=== PATIENT | female | born 1945 | race Caucasian/White ===

== ENCOUNTER 2018-07-16 19:38 | Inpatient (IN) ==
[2018-07-16 20:34] LABS: Basophils # 0.1 K/mcL (0.0-0.2); Eosinophils # 0.3 K/mcL (0.0-0.6); Eosinophils % 3.3 %; Hematocrit 39.4 % (35.3-44.9); Hemoglobin 13.4 g/dL (11.5-15.4); Immature Granulocytes % 0.9 % (0-4); Lymphocytes # 1.6 K/mcL (0.6-4.6); Lymphocytes % 16.4 %; Mean Corpuscular Hemoglobin 30.9 pg (28.0-33.3); Mean Platelet Volume 10.6 fL (9.4-12.4); Monocytes # 0.8 K/mcL (0.0-1.3); Monocytes % 8.5 %; Neutrophils # 6.7 K/mcL (1.6-8.9); Platelet Count 250 K/mcL (140-400); Red Blood Count 4.33 M/mcL (3.82-4.97); Red Cell Distribution Width 12.4 % (11.5-14.5); Segmented Neutrophils % 69.9 %
[2018-07-16 20:50] LABS: INR 2.6; Prothrombin Time 29.5 Seconds (9.4-12.1)
[2018-07-16 20:52] LABS: BUN/Creatinine Ratio 15 (6-26); Blood Urea Nitrogen 15 mg/dL (8-23); Calcium 9.5 mg/dL (8.6-10.3); Carbon Dioxide 27 mEq/L (23-29); Chloride 104 mEq/L (98-107); Glucose 121 mg/dL (70-105); Osmolality,Calculated 286 (280-300); Potassium 4.6 mEq/L (3.5-5.1); Sodium 137 mEq/L (136-145); eGFR For Non-African Americans 54 (> 60)
[2018-07-16 20:53] LABS: Troponin I < 0.03 ng/mL (< 0.04)
--- NOTE | 2018-07-16 21:11 | Emergency Department Note ---
Disposition Clinical Impression: Paroxysmal atrial fibrillation with rapid ventricular response Disposition: Admitted As Inpatient Condition: Good Referrals: Lamin Waston DO [Primary Care Provider] - Time of Disposition: 21:12 General Adult HPI - General Chief complaint: ED Arrhythmia/Palpitations Stated complaint: Afib/Weakness Time Seen by Provider: 07/16/18 19:50 Source: patient Limitations: no limitations Nursing Notes Reviewed: Yes Vital Signs Reviewed: Yes - History of Present Illness HPI Narrative: 73-year-old female with history of paroxysmal atrial fibrillation presents for chief complaint of atrial fibrillation with RVR earlier today. She has been wearing a site medical director that intermittently reports atrial fibrillation with rapid rate and did the same today. She has been having palpitations and had a near syncopal event today. Her manager Dr. White was aware of these symptoms and started her on diltiazem and xarelto and referred her to EP. ectrophysiology had planned to admit her and start her on an anti-arrythmic medication, but patient does not know when this is to take place. She denies any medication change or noncompliance. She drinks caffeine daily and has not a changes with this. She denies any headache, confusion, fever, chest pain or shortness of breath. She does note palpitations. No GI or symptoms, rashes or edema. Pain Scale: 0 - Related Data Home Medications Medication Instructions Recorded Confirmed Alendronate Sodium [Fosamax] 70 mg PO QWEEK 04/12/16 04/12/16 Cholecalciferol (D-3) [Vitamin D] 1,000 unit PO DAILY 04/12/16 04/12/16 Gabapentin [Neurontin] 300 mg PO HS 04/12/16 04/12/16 Zolpidem [Ambien] 10 mg PO HS 04/12/16 04/12/16 Allergies Allergy/AdvReac Type Severity Reaction Status Date / Time Sulfa (Sulfonamide AdvReac Itching Verified 07/08/18 17:32 Antibiotics) All systems ED: reviewed and negative except as stated. Past Medical History - Past Medical History Attestation: Yes The following information was validated with the patient. Source: patient Medical history: Reports: COPD, other Surgical history: Reports: other Psychiatric history: Reports: no psych history - Social History Smoking Status: Never smoker Alcohol use: Reports: none Drug use: Reports: none Physical Exam - General Limitations: no limitations General appearance: alert, in no apparent distress - Head Head exam: atraumatic, normocephalic - Eye Eye exam: Present: normal appearance, PERRL - ENT ENT exam: normal exam, normal oropharynx - Neck Neck exam: Present: normal inspection, full ROM - Chest Chest inspection: Present: normal inspection, symmetric chest wall rise - Respiratory Respiratory exam: Present: normal lung sounds bilaterally. Absent: respiratory distress - Cardiovascular Cardiovascular exam: Present: regular rate, normal rhythm - Abdominal Exam Abdominal exam: Present: soft - Extremities Exam Extremities exam: Present: normal inspection, full ROM - Back Exam Back exam: Present: normal inspection, full ROM - Neurological Exam Neurological exam: Present: alert, oriented X3 - Psychiatric Psychiatric exam: Present: normal affect, normal mood - Skin Skin exam: Present: warm, dry, intact Course Course Narrative: Patient has benign ED lab evaluation, but given her near syncope on Xarelto and multiple recurrent episodes of atrial fibrillation with rapid rate felt she might benefit from hospitalization. I discussed case with Dr. White final inspection supervisor for cardiology who verified that patient was to have inpatient start of her antiarrhythmics and it would be reasonable to do so tomorrow. Patient admitted for further evaluation and management of her paroxysmal atrial fibrillation. EKG interpreted by me shows normal sinus rhythm at 60 with normal axis and right bundle branch block with QRS of 128. No ST elevation or depression. No significant T-wave inversions. Abnormal EKG. Vital Signs Temperature 97.9 F 07/16/18 20:01 Pulse Rate 62 07/16/18 20:01 Respiratory Rate 16 07/16/18 20:01 Blood Pressure 112/54 07/16/18 20:01 O2 Sat by Pulse Oximetry 99 07/16/18 20:01 Temperature 97.9 F 07/16/18 20:01 Pulse Rate 62 07/16/18 20:01 Respiratory Rate 16 07/16/18 20:01 Blood Pressure 112/54 07/16/18 20:01 O2 Sat by Pulse Oximetry 99 07/16/18 20:01 Oxygen Delivery Oxygen Delivery Room Air Medical Decision Making - Lab Data Result diagrams: 07/16/18 20:09 07/16/18 20:09 Lab Results 07/16/18 07/16/18 07/16/18 Range/Units 20:09 20:09 20:09 WBC 9.6 (4.3-11.1) K/mcL RBC 4.33 (3.82-4.97) M/mcL Hgb 13.4 (11.5-15.4) g/dL Hct 39.4 (35.3-44.9) % MCV 91.0 (83.0-100.0) fL MCH 30.9 (28.0-33.3) pg MCHC 34.0 (31.6-35.5) g/dL RDW 12.4 (11.5-14.5) % Plt Count 250 (140-400) K/mcL MPV 10.6 (9.4-12.4) fL Immature Gran % 0.9 (0-4) % Seg Neutrophils % 69.9 % Lymphocytes % 16.4 % Monocytes % 8.5 % Eosinophils % 3.3 % Basophils % 1.0 % Neutrophils # 6.7 (1.6-8.9) K/mcL Lymphocytes # 1.6 (0.6-4.6) K/mcL Monocytes # 0.8 (0.0-1.3) K/mcL Eosinophils # 0.3 (0.0-0.6) K/mcL Basophils # 0.1 (0.0-0.2) K/mcL PT 29.5 H (9.4-12.1) Seconds INR 2.6 Sodium 137 (136-145) mEq/L Potassium 4.6 (3.5-5.1) mEq/L Chloride 104 (98-107) mEq/L Carbon Dioxide 27 (23-29) mEq/L BUN 15 (8-23) mg/dL Creatinine 1.01 (0.60-1.20) mg/dL Est GFR ( Amer) > 60 (> 60) Est GFR (Non-Af Amer) 54 L (> 60) BUN/Creatinine Ratio 15 (6-26) Glucose 121 H (70-105) mg/dL Calculated Osmolality 286 (280-300) Calcium 9.5 (8.6-10.3) mg/dL Troponin I < 0.03 (< 0.04) ng/mL TSH (0.340-5.600) mcIU/mL 07/16/18 Range/Units 20:09 WBC (4.3-11.1) K/mcL RBC (3.82-4.97) M/mcL Hgb (11.5-15.4) g/dL Hct (35.3-44.9) % MCV (83.0-100.0) fL MCH (28.0-33.3) pg MCHC (31.6-35.5) g/dL RDW (11.5-14.5) % Plt Count (140-400) K/mcL MPV (9.4-12.4) fL Immature Gran % (0-4) % Seg Neutrophils % % Lymphocytes % % Monocytes % % Eosinophils % % Basophils % % Neutrophils # (1.6-8.9) K/mcL Lymphocytes # (0.6-4.6) K/mcL Monocytes # (0.0-1.3) K/mcL Eosinophils # (0.0-0.6) K/mcL Basophils # (0.0-0.2) K/mcL PT (9.4-12.1) Seconds INR Sodium (136-145) mEq/L Potassium (3.5-5.1) mEq/L Chloride (98-107) mEq/L Carbon Dioxide (23-29) mEq/L BUN (8-23) mg/dL Creatinine (0.60-1.20) mg/dL Est GFR ( Amer) (> 60) Est GFR (Non-Af Amer) (> 60) BUN/Creatinine Ratio (6-26) Glucose (70-105) mg/dL Calculated Osmolality (280-300) Calcium (8.6-10.3) mg/dL Troponin I (< 0.04) ng/mL TSH 2.417 (0.340-5.600) mcIU/mL
[2018-07-17 01:03] LABS: Clarity,Urine Clear (Clear); Color,Urine Yellow (Yellow)
[2018-07-17 01:04] LABS: Bilirubin,Urine Negative (Negative); Blood,Urine Negative (Negative); Glucose,Urine (UA) Normal (Normal); Ketones,Urine Negative (Negative); Leukocyte Esterase,Urine Negative (Negative); Nitrite,Urine Negative (Negative); Protein,Urine Negative (Neg-Trace); Specific Gravity,Urine 1.009 (1.010-1.025); Urobilinogen,Urine Normal (Normal)
[2018-07-17] MEDS ORDERED: Naloxone 0.4 MG/ML INJ IVP PRN (05:10)
--- NOTE | 2018-07-17 05:20 | Internal Med History&Physical ---
Date of Encounter: 07/17/18 Time of Encounter: 04:29 Internal Medicine - H&P: HPI Chief complaint: Paroxysmal atrial fibrillation Admitted From: Emergency Dept Plans for Post Hospital Care: Home History of present illness: Ms. Yates is a 72 year old female Patient presented to the emergency room with history of paroxysmal atrial fibrillation. She has been wearing a combine inspector which had showed atrial fibrillation with RVR during the last few days. She had felt weak during an episode prior to her presentation to the ER, as well as dizzy. She was also diaphoretic, and as the combine inspector noted atrial fibrillation, they notified her billing administrator who advised her to come to the emergency room for further evaluation. Her billing administrator, Dr. White had plan to have her admitted to the hospital in order to initiate antiarrhythmic medication. She had already been put on anti-thrombotic medication, Xarelto. In the emergency room patient's initial vital signs were within normal limits including a pulse rate of 62. CBC and BMP were both within normal limits. INR was 2.6, and urinalysis was negative for infection. Chest x-ray was negative for acute cardiopulmonary process. EKG was performed that showed normal sinus rhythm with a rate of 60 and no ischemic changes. Emergency room discussed with Dr. White, who recommended patient be admitted to start her antiarrhythmics. She was admitted to the hospital for further management. Upon my evaluation, patient is resting comfortably in the hospital bed in no acute distress. She currently denies chest pain, abdominal pain, nausea, vomiting, diarrhea and constipation. She states that she has been having these episodes over the last week or so, and has been wearing the cardiac monitoring. She says the day prior to her admission to the hospital she had felt okay and noticed no racing heart or weakness. On the day of her presentation to the ER however she did have weakness, dizziness and diaphoresis. She has a family history of heart disease in both her mother and father. She is a full code. Past Med Surg Social Fam HX - Past Medical History Medical history: COPD, other Psychiatric history: no psych history - Past Surgical History Surgical History: other Additional surgical history: Feet surgery. tubal ligation - Social History Smoking Status: Former smoker Smokeless Tobacco Status: No Alcohol use: none Drug use: none - Family History Mother Hx Family Cardiac Disorders: Yes Hx Family Cancer: Yes Father Hx Family Cardiac Disorders: Yes Hx Family Cancer: Yes Internal Medicine - H&P: Meds Alendronate Sodium [Fosamax] 70 mg PO QWEEK 04/12/16 [History] Cholecalciferol (D-3) [Vitamin D] 1,000 unit PO DAILY 04/12/16 [History] Zolpidem [Ambien] 10 mg PO HS PRN 04/12/16 [History] Doxycycline Monohydrate [Mondoxyne Nl] 100 mg PO BID 07/17/18 [History] Rivaroxaban [Xarelto] 20 mg PO DAILY 07/17/18 [History] dilTIAZem HCl [Diltiazem 24Hr Cd] 120 mg PO DAILY 07/17/18 [History] Allergy/AdvReac Type Severity Reaction Status Date / Time Sulfa (Sulfonamide AdvReac Itching Verified 07/08/18 17:32 Antibiotics) All Systems PM: A 10-system review of systems was performed and is negative for pertinent findings except as documented above in the HPI. - Constitutional Vitals: Temp Pulse Resp BP Pulse Ox 98.2 F 74 14 106/61 96 07/17/18 04:06 07/17/18 04:06 07/17/18 04:06 07/17/18 04:06 07/17/18 04:06 General appearance: Present: cooperative, A&O X 3, pleasant, no acute distress, answers questions appropriately Exam: - - Head Head exam: Present: normal inspection - Eye Eye exam: Present: EOMI, normal appearance - Respiratory Respiratory exam: Present: CTAB. Absent: rales, respiratory distress, rhonchi, wheezes - Cardiovascular Cardiovascular exam: Present: RRR. Absent: diastolic murmur, systolic murmur - GI/Abdominal GI/Abdominal exam: Present: normal bowel sounds, soft. Absent: tenderness - Extremities Exam Extremities exam: Present: warm, radial pulses palpable and symmetrical. Absent: calf tenderness, pedal edema, tenderness - Neurological Exam Neurological exam: Present: no focal deficits, strengths equal and symetr throughout. Absent: motor sensory deficit, facial droop, speech deficit - Skin Skin exam: Present: dry, normal color, warm. Absent: rash Internal Med - H&P Results - Labs CBC & Chem 7: 07/16/18 20:09 07/16/18 20:09 Labs: Short CBC 07/16/18 Range/Units 20:09 WBC 9.6 (4.3-11.1) K/mcL Hgb 13.4 (11.5-15.4) g/dL Hct 39.4 (35.3-44.9) % Plt Count 250 (140-400) K/mcL Neutrophils # 6.7 (1.6-8.9) K/mcL BMP 07/16/18 20:09 Sodium 137 Potassium 4.6 Chloride 104 Carbon Dioxide 27 BUN 15 Creatinine 1.01 Glucose 121 H Calcium 9.5 Cardiac Enzymes 07/16/18 Range/Units 20:09 Troponin I < 0.03 (< 0.04) ng/mL Urine 07/17/18 Range/Units 00:28 Urine Color Yellow (Yellow) Urine Clarity Clear (Clear) Urine pH 7.0 (5.0-8.0) pH Units Ur Specific [place] 1.009 L (1.010-1.025) Urine Protein Negative (Neg-Trace) mg/dL Urine Glucose (UA) Normal (Normal) mg/dL - Impressions ITS Impressions Chest X-Ray 07/16/18 19:50 IMPRESSION: No acute cardiopulmonary process D/ / Tahir Malave / Tahir Malave Interpreting Provider: Tahir Malave - Assessment and Plan (1) Paroxysmal atrial fibrillation with rapid ventricular response Current Visit: Yes Status: Acute Assessment and plan: Patient has had monitoring via a heart monitor, had episode of atrial fibrillation. Since arrival to the ER the patient has been well controlled. Heart rate has maintained in the 60-70's. patient denies feeling elevated heart rate, and has had no palpitations. Continue cardiac monitoring Cardiology consult in the morning for initiation of anti-arrhythmic medication. Continue xarelto (2) Weakness Current Visit: Yes Status: Acute Assessment and plan: Likely secondary to atrial fibrillation, improved now that her rate has been controlled. Continue to monitor (3) Dizziness Current Visit: Yes Status: Acute Assessment and plan: Likely secondary atrial fibrillation, improved when not in atrial fibrillation. Cardiology consult (4) DVT prophylaxis Current Visit: Yes Status: Acute Assessment and plan: Continue home xarelto - Time Spent With Patient Total time spent is greater than 50% in coordination of care (as documented) at patient's floor/unit and/or counseling patient: Greater than 35 minutes
[2018-07-17 08:03] LABS: Hematocrit 38.3 % (35.3-44.9); Hemoglobin 12.8 g/dL (11.5-15.4); Mean Corpuscular HGB Conc 33.4 g/dL (31.6-35.5); Mean Corpuscular Hemoglobin 30.6 pg (28.0-33.3); Mean Corpuscular Volume 91.6 fL (83.0-100.0); Mean Platelet Volume 10.6 fL (9.4-12.4); Platelet Count 213 K/mcL (140-400); Red Blood Count 4.18 M/mcL (3.82-4.97); Red Cell Distribution Width 12.6 % (11.5-14.5)
[2018-07-17] MEDS: *HR* Rivaroxaban 10 MG TABLET PO SCH (08:16)
[2018-07-17 08:54] LABS: BUN/Creatinine Ratio 20 (6-26); Blood Urea Nitrogen 16 mg/dL (8-23); Calcium 9.3 mg/dL (8.6-10.3); Carbon Dioxide 25 mEq/L (23-29); Chloride 104 mEq/L (98-107); Glucose 130 mg/dL (70-105); Osmolality,Calculated 289 (280-300); Potassium 3.6 mEq/L (3.5-5.1); Sodium 138 mEq/L (136-145); eGFR For Non-African Americans > 60 (> 60)
[2018-07-17] MEDS ORDERED: Diltiazem CD (24hr) 120 MG CAPSULE PO SCH (09:00)
--- NOTE | 2018-07-17 09:37 | Electrocardiograph Report ---
[address] [address] Test Date: 2018-07-16 Pat Name: Missy Yates Department: [id number] Room: 3B24 Gender: F Casino Floor Supervisor: : 1945 Requested By: Jabari Cintron Order Number: [id number] Reading MD: Azar Mejia Measurements Intervals [place] Rate: 60 P: 77 CA: 147 QRS: 45 QRSD: 128 T: 68 QT: 407 QTc: 407 Interpretive Statements Sinus rhythm Atrial premature complex Right bundle branch block Electronically Signed On 07-17-2018 9:36:03 EDT by Azar Mejia
--- NOTE | 2018-07-17 12:10 | Cardiology Consult Note ---
Date of Encounter: 07/17/18 Time of Encounter: 12:08 Assessment and Plan (1) PAF (paroxysmal atrial fibrillation) Current Visit: Yes Status: Acute Symptomatic PAF. Saw Dr. Matt Mckeon outpt 07/12/18 with plans for direct admission for Rythmol 150mg [id number]. Currently SR. Admission ECG SR, rate 60bpm, QRS 128ms in setting of RBBB. Will start Rythmol 150mg [id number] with daily ECGs. Will need monitored x 5 doses. Continue Cardizem CD 120mg daily. Anticoagulated on Xarelto. Nuclear stress test 04/2018 negative for ischemia or infarct. Will order TTE. Will discuss and review with Dr. Franklin. Continue to follow. (2) Sinus pause Current Visit: Yes Status: Acute Documented to have conversion pauses from A-Fib to SR previously. Will monitor closely inpt to see if PPM is indicated to tolerate antiarrhythmics. Has been wearing 2 week event monitor that will be completed on Sunday. Will have pt remove today as she is inpt on telemetry. Sinus pause this AM 3.1 seconds. Discussion w patient/family: The assessment and plan as outlined above was discussed with the patient and/or family members who expressed understanding and agreement. All questions were ans wered. Thank you for involving us in the care of your patient. Please call with any questions. I will discuss all the above with Dr. Franklin and make changes as necessary History of Present Illness Consult date: 07/17/18 Consult reason: PAF History of present illness: Ms. Yates is a 72 year old female with PMH of PAF on Xarelto, tobacco abuse that presented to the emergency room for A-Fib RVR. She has been wearing a personnel monitor which had showed atrial fibrillation with RVR during the last few days. She had felt weak during an episode prior to her presentation to the ER, as well as dizzy. She was also diaphoretic, and as the personnel monitor noted atrial fibrillation, they notified her manager digital ad operations who advised her to come to the ED. She saw Dr. Matt Mckeon 07/12/18 with plans for antiarrhythmic a dmission to start Rythmol. She reports a "head hansen" when in A-Fib and feeling like she is going to pass out. She has been noted to have conversion pauses. Dr. Matt Mckeon discussed possible PPM to tolerate medication. Cardiology consulted for further recs. Prior CV testing: Nuclear stress test 05/09/18: Perfusion imaging negative for ischemia or infarct. Gated EF >70%. Holter 06/05/18: Underlying rhythm is sinus. Occasional ventricular and supraventricular ectopy. Short infrequent runs of SVT. Asymptomatic pauses, longest duration 2.5 seconds. Junctional beats observed @10:52D2. During patient reported symptoms, atrial ectopy is present. Past Med Surg Social Fam HX - Past Medical History Medical history: atrial fibrillation, COPD, other Psychiatric history: no psych history - Past Surgical History Surgical History: other Additional surgical history: Feet surgery. tubal ligation - Social History Smoking Status: Former smoker Smokeless Tobacco Status: No Alcohol use: none Drug use: none - Family History Mother Hx Family Cardiac Disorders: Yes Hx Family Cancer: Yes Father Hx Family Cardiac Disorders: Yes Hx Family Cancer: Yes Medications and Allergies Alendronate Sodium [Fosamax] 70 mg PO QWEEK 04/12/16 [History] Cholecalciferol (D-3) [Vitamin D] 1,000 unit PO DAILY 04/12/16 [History] Zolpidem [Ambien] 10 mg PO HS PRN 04/12/16 [History] Doxycycline Monohydrate [Mondoxyne Nl] 100 mg PO BID 07/17/18 [History] Rivaroxaban [Xarelto] 20 mg PO DAILY 07/17/18 [History] dilTIAZem HCl [Diltiazem 24Hr Cd] 120 mg PO DAILY 07/17/18 [History] Allergy/AdvReac Type Severity Reaction Status Date / Time Sulfa (Sulfonamide AdvReac Itching Verified 07/08/18 17:32 Antibiotics) All Systems Review: The remainder of the systems were reviewed and are negative - Cardiovascular Cardiovascular: as per HPI, lightheadedness, palpitations Physical Examination Vital Signs, Last 4 Hours Temp Pulse Resp BP Pulse Ox 07/17/18 10:47 98.1 F 85 16 139/83 95 Vital Signs Temp Pulse Resp BP Pulse Ox 07/17/18 10:47 98.1 F 85 16 139/83 95 07/17/18 07:18 98.1 F 72 16 128/75 96 07/17/18 04:06 98.2 F 74 14 106/61 96 07/17/18 01:23 97.7 F 78 14 154/75 97 07/17/18 00:00 16 112/79 07/16/18 20:01 97.9 F 62 16 112/54 99 Intake and Output 07/16/18 07/17/18 07/17/18 23:59 07:59 15:59 Intake Total 240 / 480 240 / 480 Balance 240 / 480 240 / 480 Intake: Oral 240 / 480 240 / 480 Other: Meal Breakfast Percent of Meal Consumed 100% Weight 84.005 kg 84.6 kg Patient Weight 07/17/18 23:59 Weight 84.6 kg General: Conversant, No Apparent Distress HEENT: Atraumatic, Normocephaly, Mucus Membranes Moist Neck: No JVD, Normal carotid pulses Cardiac: Reg Rate and Rhythm, Normal S1 and S2, No Murmur Lungs: Normal Breath Sounds, No Wheeze, Rales, Rhonchi Neuro: Alert and responsive, No focal deficits noted Abdomen: Soft, Non-Tender Skin: No rashes noted on visualized skin Musculoskeletal: No Chest Wall Tenderness Extremities: No Clubbing, No Cyanosis, No Edema, Normal Pulses Results 07/17/18 07:10 07/17/18 07:10 Lab Results 07/16/18 07/16/18 07/16/18 20:09 20:09 20:09 WBC 9.6 Hgb 13.4 Hct 39.4 Plt Count 250 INR 2.6 Sodium 137 Potassium 4.6 Chloride 104 Carbon Dioxide 27 BUN 15 Creatinine 1.01 Glucose 121 H Calcium 9.5 Troponin I < 0.03 TSH 07/16/18 07/17/18 07/17/18 20:09 07:10 07:10 WBC 8.1 Hgb 12.8 Hct 38.3 Plt Count 213 INR Sodium 138 Potassium 3.6 Chloride 104 Carbon Dioxide 25 BUN 16 Creatinine 0.81 Glucose 130 H Calcium 9.3 Troponin I TSH 2.417 Short CBC 07/17/18 07/16/18 Range/Units 07:10 20:09 WBC 8.1 9.6 (4.3-11.1) K/mcL Hgb 12.8 13.4 (11.5-15.4) g/dL Hct 38.3 39.4 (35.3-44.9) % Plt Count 213 250 (140-400) K/mcL Neutrophils # 6.7 (1.6-8.9) K/mcL BMP 07/17/18 07/16/18 Range/Units 07:10 20:09 Sodium 138 137 (136-145) mEq/L Potassium 3.6 4.6 (3.5-5.1) mEq/L Chloride 104 104 (98-107) mEq/L Carbon Dioxide 25 27 (23-29) mEq/L BUN 16 15 (8-23) mg/dL Creatinine 0.81 1.01 (0.60-1.20) mg/dL Glucose 130 H 121 H (70-105) mg/dL Calcium 9.3 9.5 (8.6-10.3) mg/dL Cardiac Enzymes 07/16/18 Range/Units 20:09 Troponin I < 0.03 (< 0.04) ng/mL Urine 07/17/18 Range/Units 00:28 Urine Color Yellow (Yellow) Urine Clarity Clear (Clear) Urine pH 7.0 (5.0-8.0) pH Units Ur Specific [place] 1.009 L (1.010-1.025) Urine Protein Negative (Neg-Trace) mg/dL Urine Glucose (UA) Normal (Normal) mg/dL Impressions Chest X-Ray 07/16/18 19:50 IMPRESSION: No acute cardiopulmonary process D/ / Tahir Malave / Tahir Malave Interpreting Provider: Tahir Malave Active Medications Diltiazem HCl (Cardizem Cd) 120 mg PO DAILY [facility] Stop: 01/16/19 09:01 Naloxone HCl (Narcan) 0.4 mg IVP Q2MPRN PRN PRN Reason: SEE COMMENTS Stop: 01/16/19 05:11 Rivaroxaban (Xarelto) 20 mg PO DAILY [facility] Stop: 01/16/19 09:01 Last Admin: 07/17/18 08:16 Dose: 20 mg Documented by: Vitamin D (Vitamin D) 1,000 unit PO DAILY [facility] Stop: 01/16/19 09:01 Zolpidem Tartrate (Ambien) 10 mg PO HS PRN; Protocol PRN Reason: Sleep Stop: 01/16/19 08:47 - Imaging and Cardiology Stress Test: report reviewed - EKG Interpretation EKG results cardiology: personally reviewed (SR, rate 60bpm, QRS 128ms.), other (12 hr tele AVG HR 76, SR, 3.1 second pause) Consult Discharge Plan - Plan Referrals: Lamin Watson DO [Primary Care Provider] - (Appt w/r)
[2018-07-17] MEDS: Cholecalciferol (D-3) 1,000 UNIT TABLET PO SCH (12:25)
--- NOTE | 2018-07-18 03:05 | Event Note ---
Date of Encounter: 07/18/18 Time of Encounter: 03:00 Patient had several sinus pauses overnight. Times were around 1:20, 2:40, 2:50 AM. She had a 3.1 second pause the previous night. Cardiology is following and knows about her pause from the previous night. I am going to hold her rythmol 7 AM dose due to her multiple sinus pauses overnight. Other vitals remain normal and patient is resting well. Please confirm with cardiology if resuming rythmol is still appropriate for her.
[2018-07-18 07:11] LABS: BUN/Creatinine Ratio 20 (6-26); Blood Urea Nitrogen 17 mg/dL (8-23); Calcium 9.7 mg/dL (8.6-10.3); Carbon Dioxide 24 mEq/L (23-29); Chloride 103 mEq/L (98-107); Glucose 163 mg/dL (70-105); Osmolality,Calculated 289 (280-300); Potassium 4.1 mEq/L (3.5-5.1); Sodium 137 mEq/L (136-145); eGFR For Non-African Americans > 60 (> 60)
[2018-07-18] MEDS: Cholecalciferol (D-3) 1,000 UNIT TABLET PO SCH (09:21)
[2018-07-18] MEDS: *HR* Rivaroxaban 10 MG TABLET PO SCH (09:21)
[2018-07-18] MEDS ORDERED: NON-FORMULARY MEDICATION 1 EACH EACH (Alendronate Sodium [Fosamax] 70 MG) PO SCH (10:30)
--- NOTE | 2018-07-18 10:57 | Internal Med Progress Note ---
Hospitalist Progress Note - Encounter Date of Encounter: 07/18/18 Time of Encounter: 10:53 - Subjective Interval History: Patient seen and examined in the room. She reported funny feeling in the chest and low BP this morning when she was told having sinus pauses. also reported a little lightheadedness but denies chest pain, sob, or palpitation. She seems very anxious and scared, would like to see cardiology as soon as possible. reported a recent tick bit and currently on oral doxycycline. - Exam Vitals: Temp Pulse Resp BP Pulse Ox 98.0 F 64 19 98/46 98 07/18/18 07:56 07/18/18 07:56 07/18/18 07:56 07/18/18 07:56 07/18/18 07:56 Exam: PHYSICAL EXAMINATION: GENERAL APPEARANCE: The patient is alert, oriented and in no acute distress. HEENT: Head is normocephalic. The sinuses are nontender. Pupils are equal and reactive. The nares are patent. Oropharynx clear without lesions. NECK: Supple without lymphadenopathy. HEART: Regular rate and rhythm. LUNGS: No crackles or wheezes are heard. ABDOMEN: Soft, nontender, nondistended with good bowel sounds heard. Inguinal area is normal. EXTREMITIES: Without cyanosis, clubbing or edema. NEUROLOGICAL: Gross nonfocal. SKIN: Warm and dry without any rash. - Assessment and Plan (1) Sinus pause Current Visit: Yes Status: Acute Assessment and Plan: Patient was recently diagnosis with paroxysmal atrial fibrillation, has been following up with Dr. White, currently having a remote wearable telemetry device, reported that she was having episodic A. fib with RVR, with associated facial flushing and anxious feeling. Cardiology started the patient on Rythmol, overnight, patient had several episodes of sinus pause with the longest one about 6 second. Cardizem dose was downgraded by cardiology, Rythmol was continued. Continue monitoring. (2) PAF (paroxysmal atrial fibrillation) Current Visit: Yes Status: Acute Assessment and Plan: Currently patient on sinus rhythm, continue Xarelto. (3) Tick bite Current Visit: No Status: Chronic Assessment and Plan: Patient was prescribed doxycycline by PCP, we will continue, follow-up with PCP if further testing was indicated. (4) DVT prophylaxis Current Visit: Yes Status: Acute Assessment and Plan: Pt on Xaelto. - Time Spent with Patient Total time spent is greater than 50% in coordination of care (as documented) at patient's floor/unit and/or counseling patient: Greater than 35 minutes Plan of Care Discussed with: patient Internal Medicine: Result - Labs CBC & Chem 7: 07/17/18 07:10 07/18/18 06:38 Labs: BMP 07/18/18 06:38 Sodium 137 Potassium 4.1 Chloride 103 Carbon Dioxide 24 BUN 17 Creatinine 0.84 Glucose 163 H Calcium 9.7 - ABG Interpretation ABG results: PT/INR, D-dimer PT 29.5 Seconds (9.4-12.1) H 07/16/18 20:09 - Impressions Impressions Echocardiogram 07/17/18 12:33 Impressions: LVEF 65%. Normal LV chamber size, wall thickness and function. Normal left ventricular diastolic function. Normal right ventricular structure and function. Mild tricuspid regurgitation. No evidence of pulmonary hypertension. Left Ventricular Wall Motion: Rest Echo Findings All wall segments showed normal motion. Findings: Study Quality * Technically adequate exam. ECG Findings * Normal sinus rhythm. Left Ventricle * LVEF 65%. * Normal LV chamber size, wall thickness and function. * Normal left ventricular diastolic function. Right Ventricle * Normal right ventricular structure and function. Left Atrium * Normal left atrial size. Right Atrium * Normal right atrial size. Aortic Valve * Trileaflet aortic valve. * Mildly calcified aortic valve leaflets. * No aortic regurgitation. * No aortic stenosis. Mitral Valve * Normal mitral valve structure. * No mitral regurgitation. * No mitral stenosis. Tricuspid Valve * Mild tricuspid regurgitation. * Normal tricuspid valve structure. * No tricuspid stenosis. * No evidence of pulmonary hypertension. Pulmonic Valve * No pulmonic regurgitation. Aorta * Normally sized aortic root. Pericardium * The pericardium appears normal. IVC * Normal IVC dimensions and inspiratory collapse. Pulmonary Artery * Normal visualized portions of the main pulmonary artery. Consult Discharge Plan - Plan Referrals: Lamin Watson DO [Primary Care Provider] - 07/30/18 9:30 am () _ (3) Tick bite Qualifiers: Encounter type: initial encounter Qualified Code(s): W57.XXXA - Bitten or stung by nonvenomous insect and other nonvenomous arthropods, initial encounter
--- NOTE | 2018-07-18 11:56 | Cardiology Progress Note ---
Date of Encounter: 07/18/18 Time of Encounter: 11:54 Assessment and Plan (1) PAF (paroxysmal atrial fibrillation) Current Visit: Yes Status: Acute Symptomatic PAF. Saw Dr. Matt Mckeon outpt 07/12/18 with plans for direct admission for Rythmol 150mg S2hxpas. Started yesterday. Currently SR. Admission ECG SR, rate 60bpm, QRS 128ms in setting of RBBB. S/P 2 doses. ECG 07/18 SR, rate 69bpm, QRS 134ms. Stable. Cardizem CD 120mg daily. Overnight pt had multiple sinus pauses, longest 4.7 seconds nocturnal. Longest daytime pause noted 3.[address] Franklin. Will decrease Cardizem to short acting 15mg TID. Continue Rythmol. Continue to monitor telemetry. Nuclear stress test 04/2018 negative for ischemia or infarct. TTE 07/17/18: LVEF 65%. Normal LV chamber size, wall thickness and function. Normal LVDD. Normal RV structure and function. Mild TR. No phtn. Anticoagulated on Xarelto. (2) Sinus pause Current Visit: Yes Status: Acute Documented to have conversion pauses from A-Fib to SR previously.Has been wearing 2 week event monitor. Sinus pauses noted overnight, longest 4.7 seconds nocturnal. Longest daytime pause 3.1 seconds. As above, decrease cardizem. Continue to monitor closely. Discussion w patient/family: The assessment and plan as outlined above was discussed with the patient and/or family members who expressed understanding and agreement. All questions were answered. Thank you for involving us in the care of your patient. Please call with any questions. I will discuss all the above with Dr. Franklin and make changes as necessary Subjective Principal diagnosis: PAF Interval history: Reports episode of palpitations and dizziness this AM. No complaints currently. Objective Vital Signs, Last 4 Hours Temp Pulse Resp BP Pulse Ox 07/18/18 07:56 98.0 F 64 19 98/46 98 Vital Signs Temp Pulse Resp BP Pulse Ox 07/18/18 07:56 98.0 F 64 19 98/46 98 07/18/18 04:33 98 F 50 14 96/60 98 07/18/18 00:02 98.4 F 73 15 139/81 97 07/17/18 19:21 98.3 F 70 14 101/63 96 07/17/18 15:00 98.0 F 82 14 120/75 96 Intake and Output 07/17/18 07/18/18 07/18/18 23:59 07:59 15:59 Intake Total 480 / 480 Output Total 350 / 350 Balance -350 / 130 480 / 130 Intake: Oral 480 / 480 Output: Urine 350 / 350 Other: Meal Breakfast Percent of Meal Consumed 100% Weight 84.7 kg Blood Glucose* 115 Patient Weight 07/18/18 23:59 Weight 84.7 kg General: Conversant, No Apparent Distress HEENT: Atraumatic, Normocephaly, Mucus Membranes Moist Neck: No JVD, Normal carotid pulses Cardiac: Reg Rate and Rhythm, Normal S1 and S2, No Murmur Lungs: Normal Breath Sounds, No Wheeze, Rales, Rhonchi Neuro: Alert and responsive, No focal deficits noted Abdomen: Soft, Non-Tender Skin: No rashes noted on visualized skin Musculoskeletal: No Chest Wall Tenderness Extremities: No Clubbing, No Cyanosis, No Edema, Normal Pulses Results 07/17/18 07:10 07/18/18 06:38 Lab Results 07/18/18 06:38 Sodium 137 Potassium 4.1 Chloride 103 Carbon Dioxide 24 BUN 17 Creatinine 0.84 Glucose 163 H Calcium 9.7 BMP 07/18/18 Range/Units 06:38 Sodium 137 (136-145) mEq/L Potassium 4.1 (3.5-5.1) mEq/L Chloride 103 (98-107) mEq/L Carbon Dioxide 24 (23-29) mEq/L BUN 17 (8-23) mg/dL Creatinine 0.84 (0.60-1.20) mg/dL Glucose 163 H (70-105) mg/dL Calcium 9.7 (8.6-10.3) mg/dL Impressions Echocardiogram 07/17/18 12:33 Impressions: LVEF 65%. Normal LV chamber size, wall thickness and function. Normal left ventricular diastolic function. Normal right ventricular structure and function. Mild tricuspid regurgitation. No evidence of pulmonary hypertension. Left Ventricular Wall Motion: Rest Echo Findings All wall segments showed normal motion. Findings: Study Quality * Technically adequate exam. ECG Findings * Normal sinus rhythm. Left Ventricle * LVEF 65%. * Normal LV chamber size, wall thickness and function. * Normal left ventricular diastolic function. Right Ventricle * Normal right ventricular structure and function. Left Atrium * Normal left atrial size. Right Atrium * Normal right atrial size. Aortic Valve * Trileaflet aortic valve. * Mildly calcified aortic valve leaflets. * No aortic regurgitation. * No aortic stenosis. Mitral Valve * Normal mitral valve structure. * No mitral regurgitation. * No mitral stenosis. Tricuspid Valve * Mild tricuspid regurgitation. * Normal tricuspid valve structure. * No tricuspid stenosis. * No evidence of pulmonary hypertension. Pulmonic Valve * No pulmonic regurgitation. Aorta * Normally sized aortic root. Pericardium * The pericardium appears normal. IVC * Normal IVC dimensions and inspiratory collapse. Pulmonary Artery * Normal visualized portions of the main pulmonary artery. Active Medications Diltiazem HCl (Cardizem) 15 mg PO Q8H [facility] Stop: 01/17/19 10:01 Last Admin: 07/18/18 11:08 Dose: 15 mg Documented by: Doxycycline Hyclate (Doxycycline) 100 mg PO BID [facility] Stop: 01/17/19 21:01 Naloxone HCl (Narcan) 0.4 mg IVP Q2MPRN PRN PRN Reason: SEE COMMENTS Stop: 01/16/19 05:11 Propafenone HCl (Rhythmol) 150 mg PO Q8H [facility] Stop: 01/17/19 10:02 Last Admin: 07/18/18 11:08 Dose: 150 mg Documented by: Rivaroxaban (Xarelto) 20 mg PO DAILY [facility] Stop: 01/16/19 09:01 Last Admin: 07/18/18 09:21 Dose: 20 mg Documented by: Vitamin D (Vitamin D) 1,000 unit PO DAILY [facility] Stop: 01/16/19 09:01 Last Admin: 07/18/18 09:21 Dose: 1,000 unit Documented by: Zolpidem Tartrate (Ambien) 10 mg PO HS PRN; Protocol PRN Reason: Sleep Stop: 01/16/19 08:47 - Imaging and Cardiology Echo: report reviewed - EKG Interpretation EKG results cardiology: other (12 hr tele AVG HR) Consult Discharge Plan - Plan Referrals: Lamin Watson DO [Primary Care Provider] - 07/30/18 9:30 am ()
--- NOTE | 2018-07-18 12:29 | Electrocardiograph Report ---
[place] [id number] Test Date: 2018-07-18 Pat Name: Missy Yates Department: 113 Room: 3B24 Gender: Female Outplacement Consultant: Magalys : 1945 Requested By: Order Number: [id number] Reading MD: Jim White Measurements Intervals [place] Rate: 69 P: 90 [place]: 155 QRS: 5 QRSD: 134 T: 42 QT: 425 QTc: 444 Interpretive Statements SINUS RHYTHM RIGHT BUNDLE BRANCH BLOCK Electronically Signed On 07-18-2018 12:27:24 EDT by Jim White
[2018-07-18] MEDS: Doxycycline 100 MG CAPSULE PO SCH (20:11)
[2018-07-19 05:53] LABS: BUN/Creatinine Ratio 22 (6-26); Blood Urea Nitrogen 19 mg/dL (8-23); Calcium 9.9 mg/dL (8.6-10.3); Carbon Dioxide 25 mEq/L (23-29); Chloride 103 mEq/L (98-107); Glucose 127 mg/dL (70-105); Osmolality,Calculated 288 (280-300); Potassium 4.4 mEq/L (3.5-5.1); Sodium 137 mEq/L (136-145); eGFR For Non-African Americans > 60 (> 60)
[2018-07-19] MEDS: Cholecalciferol (D-3) 1,000 UNIT TABLET PO SCH (09:46)
[2018-07-19] MEDS: Doxycycline 100 MG CAPSULE PO SCH ×3 (09:46→21:14)
--- NOTE | 2018-07-19 11:25 | Internal Med Progress Note ---
Hospitalist Progress Note - Encounter Date of Encounter: 07/19/18 Time of Encounter: 11:21 - Subjective Interval History: Patient is seen and examined in the room. She is very anxious about her sinus pause, she also reported lightheadedness at times. However, she denies chest pain, shortness of breath, or syncope. - Exam Vitals: Temp Pulse Resp BP Pulse Ox 98 F 70 17 138/82 96 07/19/18 11:20 07/19/18 09:21 07/19/18 11:20 07/19/18 11:20 07/19/18 11:20 Exam: PHYSICAL EXAMINATION: GENERAL APPEARANCE: The patient is alert, oriented and in no acute distress. HEENT: Head is normocephalic. The sinuses are nontender. Pupils are equal and reactive. The nares are patent. Oropharynx clear without lesions. NECK: Supple without lymphadenopathy. HEART: Regular rate and rhythm. LUNGS: No crackles or wheezes are heard. ABDOMEN: Soft, nontender, nondistended with good bowel sounds heard. Inguinal area is normal. EXTREMITIES: Without cyanosis, clubbing or edema. NEUROLOGICAL: Gross nonfocal. SKIN: Warm and dry without any rash. - Assessment and Plan (1) Sinus pause Current Visit: Yes Status: Acute Assessment and Plan: 07/18 Patient was recently diagnosis with paroxysmal atrial fibrillation, has been following up with Dr. White, currently having a remote wearable telemetry device, reported that she was having episodic A. fib with RVR, with associated facial flushing and anxious feeling. Cardiology started the patient on Rythmol, overnight, patient had several episodes of sinus pause with the longest one about 4 second. Cardizem dose was downgraded by cardiology, Rythmol was continued. Continue monitoring. 07/19 Telemetry tracing reviewed, patient still have occasional sinus pause with junctional escape. Cardizem dose has adjusted by cardiology. Ideology following, appreciate help. (2) PAF (paroxysmal atrial fibrillation) Current Visit: Yes Status: Acute Assessment and Plan: Currently patient on sinus rhythm, continue Xarelto. (3) Tick bite Current Visit: No Status: Chronic Assessment and Plan: Patient was prescribed doxycycline by PCP, we will continue, follow-up with PCP if further testing was indicated. (4) DVT prophylaxis Current Visit: Yes Status: Acute Assessment and Plan: Pt on Xaelto. - Time Spent with Patient Total time spent is greater than 50% in coordination of care (as documented) at patient's floor/unit and/or counseling patient: Greater than 35 minutes Plan of Care Discussed with: patient Internal Medicine: Result - Labs CBC & Chem 7: 07/17/18 07:10 07/19/18 05:14 Labs: BMP 07/19/18 05:14 Sodium 137 Potassium 4.4 Chloride 103 Carbon Dioxide 25 BUN 19 Creatinine 0.85 Glucose 127 H Calcium 9.9 - ABG Interpretation ABG results: PT/INR, D-dimer PT 29.5 Seconds (9.4-12.1) H 07/16/18 20:09 Consult Discharge Plan - Plan Referrals: Lamin Watson DO [Primary Care Provider] - 07/30/18 9:30 am () (3) Tick bite Qualifiers: Encounter type: initial encounter Qualified Code(s): W57.XXXA - Bitten or stung by nonvenomous insect and other nonvenomous arthropods, initial encounter
--- NOTE | 2018-07-19 11:48 | Cardiology Progress Note ---
Date of Encounter: 07/19/18 Time of Encounter: 11:46 Assessment and Plan (1) PAF (paroxysmal atrial fibrillation) Current Visit: Yes Status: Acute Symptomatic PAF. Saw Dr. Matt Mckeon outpt 07/12/18 with plans for direct admission for Rythmol 150mg [id number]. Started 07/17, S/P 4 doses. Currently SR. Admission ECG SR, rate 60bpm, QRS 128ms in setting of RBBB. ECG 07/18 SR, rate 69bpm, QRS 134ms. ECG 07/19 SR, rate 67 bpm, QRS 141ms. Stable. Cardizem CD 120mg daily was decreased 07/18 to short acting 15mg TID d/t pauses. Longest pauses since admission 4.7 seconds nocturnal. Longest daytime pause noted 3.[address] Franklin. Pauses continue despite cardizem decrease--longest 4.1 seconds overnight. Plan for PPM (DDD) Sunday with Dr. Riky san at 11AM d/t sinus pauses. Nuclear stress test 04/2018 negative for ischemia or infarct. TTE 07/17/18: LVEF 65%. Normal LV chamber size, wall thickness and function. Normal LVDD. Normal RV structure and function. Mild TR. No phtn. Anticoagulated on Xarelto. Will hold in anticipation of PPM. (2) Sinus pause Current Visit: Yes Status: Acute Documented to have conversion pauses from A-Fib to SR previously. Has been wearing 2 week event monitor. Sinus pauses noted during stay, longest 4.7 seconds nocturnal. Longest daytime pause 3.7 seconds. As above, decreased cardizem, pauses continue. Symptomatic with dizziness. Plan for PPM (DDD) Sunday with Dr. Smith at 11AM. Discussion w patient/family: The assessment and plan as outlined above was discussed with the patient and/or family members who expressed understanding and agreement. All questions were answered. Thank you for involving us in the care of your patient. Please call with any questions. I will discuss all the above with Dr. Franklin and make changes as necessary Subjective Principal diagnosis: PAF Interval history: Reports episode of palpitations and dizziness intermittently. No complaints currently. Objective Vital Signs, Last 4 Hours Temp Pulse Resp BP Pulse Ox 07/19/18 11:20 98 F 17 138/82 96 07/19/18 09:21 97.6 F 70 18 138/92 98 07/19/18 08:57 97.6 F 70 18 138/92 98 Vital Signs Temp Pulse Resp BP Pulse Ox 07/19/18 11:20 98 F 17 138/82 96 07/19/18 09:21 97.6 F 70 18 138/92 98 07/19/18 08:57 97.6 F 70 18 138/92 98 07/19/18 07:15 98.0 F 68 18 133/77 97 07/19/18 03:12 97.8 F 68 16 116/69 98 07/18/18 23:28 98.4 F 74 16 112/64 96 07/18/18 18:52 98.1 F 60 16 110/61 95 07/18/18 16:51 98.2 F 79 18 146/82 96 07/18/18 12:20 98.5 F 79 14 125/76 95 Intake and Output 07/18/18 07/19/18 07/19/18 23:59 07:59 15:59 Intake Total 240 / 240 Output Total 601 / 951 Balance -601 / -471 240 / 240 Intake: Oral 240 / 240 Output: Urine 601 / 951 Other: Meal Breakfast Percent of Meal Consumed 80% Weight 85.1 kg Patient Weight 07/19/18 23:59 Weight 85.1 kg General: Conversant, No Apparent Distress HEENT: Atraumatic, Normocephaly, Mucus Membranes Moist Neck: No JVD, Normal carotid pulses Cardiac: Reg Rate and Rhythm, Normal S1 and S2, No Murmur Lungs: Normal Breath Sounds, No Wheeze, Rales, Rhonchi Neuro: Alert and responsive, No focal deficits noted Abdomen: Soft, Non-Tender Skin: No rashes noted on visualized skin Musculoskeletal: No Chest Wall Tenderness Extremities: No Clubbing, No Cyanosis, No Edema, Normal Pulses Results 07/17/18 07:10 07/19/18 05:14 Lab Results 07/19/18 05:14 Sodium 137 Potassium 4.4 Chloride 103 Carbon Dioxide 25 BUN 19 Creatinine 0.85 Glucose 127 H Calcium 9.9 Magnesium 2.0 BMP 07/19/18 Range/Units 05:14 Sodium 137 (136-145) mEq/L Potassium 4.4 (3.5-5.1) mEq/L Chloride 103 (98-107) mEq/L Carbon Dioxide 25 (23-29) mEq/L BUN 19 (8-23) mg/dL Creatinine 0.85 (0.60-1.20) mg/dL Glucose 127 H (70-105) mg/dL Calcium 9.9 (8.6-10.3) mg/dL Active Medications Diltiazem HCl (Cardizem) 15 mg PO Q8H [facility] Stop: 01/17/19 10:01 Last Admin: 07/19/18 09:46 Dose: 15 mg Documented by: Doxycycline Hyclate (Doxycycline) 100 mg PO BID [facility] Stop: 01/17/19 21:01 Last Admin: 07/19/18 09:51 Dose: Not Given Documented by: Naloxone HCl (Narcan) 0.4 mg IVP Q2MPRN PRN PRN Reason: SEE COMMENTS Stop: 01/16/19 05:11 Propafenone HCl (Rhythmol) 150 mg PO Q8H [facility] Stop: 01/17/19 10:02 Last Admin: 07/19/18 09:48 Dose: 150 mg Documented by: Rivaroxaban (Xarelto) 15 mg PO 1700 [facility] Stop: 01/18/19 17:01 Vitamin D (Vitamin D) 1,000 unit PO DAILY [facility] Stop: 01/16/19 09:01 Last Admin: 07/19/18 09:46 Dose: 1,000 unit Documented by: Zolpidem Tartrate (Ambien) 10 mg PO HS PRN; Protocol PRN Reason: Sleep Stop: 01/16/19 08:47 - Imaging and Cardiology Stress Test: report reviewed Echo: report reviewed - EKG Interpretation EKG results cardiology: personally reviewed, other (12 hr tele AVG HR 67, sinus pauses up to 4.1 seconds, mostly nocturnal) Consult Discharge Plan - Plan Referrals: Lamin Watson DO [Primary Care Provider] - 07/30/18 9:30 am ()
[2018-07-19] MEDS ORDERED: *HR* Rivaroxaban 15 MG TABLET PO SCH (17:00)
--- NOTE | 2018-07-19 21:32 | Electrocardiograph Report ---
[place] [id number] Test Date: 2018-07-19 Pat Name: Missy Yates Department: 113 Room: 3B24 Gender: F Zoning Engineer: : 1945 Requested By: Richard Marie Order Number: [id number] Reading MD: Ethan Gomez Measurements Intervals [place] Rate: 67 P: 92 [place]: 163 QRS: 27 QRSD: 141 T: 32 QT: 417 QTc: 432 Interpretive Statements SINUS RHYTHM RIGHT BUNDLE BRANCH BLOCK Electronically Signed On 07-19-2018 21:30:21 EDT by Ethan Gomez
[2018-07-20] MEDS: *HR* Enoxaparin 100 MG/ML SYRINGE SQ SCH ×2 (05:59→17:09)
[2018-07-20 06:22] LABS: Hematocrit 39.7 % (35.3-44.9); Hemoglobin 13.3 g/dL (11.5-15.4); Mean Corpuscular HGB Conc 33.5 g/dL (31.6-35.5); Mean Corpuscular Hemoglobin 30.6 pg (28.0-33.3); Mean Corpuscular Volume 91.5 fL (83.0-100.0); Mean Platelet Volume 10.6 fL (9.4-12.4); Platelet Count 221 K/mcL (140-400); Red Blood Count 4.34 M/mcL (3.82-4.97); Red Cell Distribution Width 12.4 % (11.5-14.5)
[2018-07-20 06:44] LABS: BUN/Creatinine Ratio 25 (6-26); Blood Urea Nitrogen 22 mg/dL (8-23); Calcium 9.5 mg/dL (8.6-10.3); Carbon Dioxide 24 mEq/L (23-29); Chloride 103 mEq/L (98-107); Glucose 114 mg/dL (70-105); Osmolality,Calculated 286 (280-300); Potassium 4.6 mEq/L (3.5-5.1); Sodium 136 mEq/L (136-145); eGFR For Non-African Americans > 60 (> 60)
[2018-07-20] MEDS: Cholecalciferol (D-3) 1,000 UNIT TABLET PO SCH (08:49)
[2018-07-20] MEDS: Doxycycline 100 MG CAPSULE PO SCH ×2 (08:49→20:27)
--- NOTE | 2018-07-20 10:37 | Internal Med Progress Note ---
Hospitalist Progress Note - Encounter Date of Encounter: 07/20/18 Time of Encounter: 10:35 - Subjective Interval History: She has seen and examined in the room. She reported and no palpitation, chest pain, lightheadedness, or syncope overnight. - Exam Vitals: Temp Pulse Resp BP Pulse Ox 98.1 F 70 16 117/72 96 07/20/18 07:43 07/20/18 07:43 07/20/18 07:43 07/20/18 07:43 07/20/18 07:43 Exam: PHYSICAL EXAMINATION: GENERAL APPEARANCE: The patient is alert, oriented and in no acute distress. HEENT: Head is normocephalic. The sinuses are nontender. Pupils are equal and reactive. The nares are patent. Oropharynx clear without lesions. NECK: Supple without lymphadenopathy. HEART: Regular rate and rhythm. LUNGS: No crackles or wheezes are heard. ABDOMEN: Soft, nontender, nondistended with good bowel sounds heard. Inguinal area is normal. EXTREMITIES: Without cyanosis, clubbing or edema. NEUROLOGICAL: Gross nonfocal. SKIN: Warm and dry without any rash. - Assessment and Plan (1) Sinus pause Current Visit: Yes Status: Acute Assessment and Plan: 07/18 Patient was recently diagnosis with paroxysmal atrial fibrillation, has been f ollowing up with Dr. White, currently having a remote wearable telemetry device, reported that she was having episodic A. fib with RVR, with associated facial flushing and anxious feeling. Cardiology started the patient on Rythmol, overnight, patient had several episodes of sinus pause with the longest one about 4 second. Cardizem dose was downgraded by cardiology, Rythmol was continued. Continue monitoring. 07/19 Telemetry tracing reviewed, patient still have occasional sinus pause with junc tional escape. Cardizem dose has adjusted by cardiology. Ideology following, appreciate help. 07/20 Due to persistent sinus pause, cardiology elected for pacemaker implantation, planed for next Sunday. Rythmol has been DC'd, overnight, patient has no reported lightheadedness. (2) PAF (paroxysmal atrial fibrillation) Current Visit: Yes Status: Acute Assessment and Plan: Currently patient on sinus rhythm, Xarelto on hold, in stated patient was placed on Lovenox for upcoming pacemaker insertion. We will resume Xarelto after the procedure. (3) Tick bite Current Visit: No Status: Chronic Assessment and Plan: Patient was prescribed doxycycline by PCP, we will continue, follow-up with PCP if further testing was indicated. (4) DVT prophylaxis Current Visit: Yes Status: Acute Assessment and Plan: Pt on Lovenox. - Time Spent with Patient Total time spent is greater than 50% in coordination of care (as documented) at patient's floor/unit and/or counseling patient: Greater than 35 minutes Plan of Care Discussed with: patient Internal Medicine: Result - Labs CBC & Chem 7: 07/20/18 05:58 07/20/18 05:58 Labs: Short CBC 07/20/18 Range/Units 05:58 WBC 9.6 (4.3-11.1) K/mcL Hgb 13.3 (11.5-15.4) g/dL Hct 39.7 (35.3-44.9) % Plt Count 221 (140-400) K/mcL BMP 07/20/18 05:58 Sodium 136 Potassium 4.6 Chloride 103 Carbon Dioxide 24 BUN 22 Creatinine 0.88 Glucose 114 H Calcium 9.5 - ABG Interpretation ABG results: PT/INR, D-dimer PT 29.5 Seconds (9.4-12.1) H 07/16/18 20:09 Consult Discharge Plan - Plan Referrals: Lamin Watson DO [Primary Care Provider] - 07/30/18 9:30 am () (3) Tick bite Qualifiers: Encounter type: initial encounter Qualified Code(s): W57.XXXA - Bitten or stung by nonvenomous insect and other nonvenomous arthropods, initial encounter
--- NOTE | 2018-07-20 11:41 | Cardiothoracic Consult Note ---
Date of Encounter: 07/20/18 Time of Encounter: 11:39 Assessment and Plan (1) Paroxysmal atrial fibrillation with rapid ventricular response Current Visit: Yes Status: Acute The assessment and plan as outlined above was discussed with the patient and/or family members who expressed understanding and agreement. All questions were answered. I have advised the patient to have a dual chamber pacemaker. We discussed battery malfunction and lead malfunction, the necessity for pacemaker follow-up to monitor for lead malfunction and battery life. We discussed the risk of bleeding, transfusion, cardiac perforation, infection. We will write preoperative orders were surgery which we will perform tomorrow at 8 AM. Patient will call her daughter and other family members. We will start antibiotics at the time of her mac/local anesthesia. (2) Sinus pause Current Visit: Yes Status: Acute The assessment and plan as outlined above was discussed with the patient and/or family members who expressed understanding and agreement. All questions were answered. - History of Present Illness Consult date: 07/20/18 Requesting physician: Matt Mckeon Consult reason: sinus pauses Chief complaint: nasuea, lethargy History of present illness: Ms. Yates is a 72 year old female who presented to [facility] with complaints of chest flutter, diaphoresis, and lethargy over the last week while wearing her monitoring specialist, which demonstrated atrial fibrillation with rapid ventricular response. She had a similar episode morning. Past Med Surg Social Fam HX - Past Medical History Medical history: atrial fibrillation, COPD, other Psychiatric history: no psych history - Past Surgical History Surgical History: cataract, hysterectomy, other Additional surgical history: Feet surgery. tubal ligation - Social History Smoking Status: Former smoker Smokeless Tobacco Status: No Alcohol use: none Drug use: none - Family History Mother Hx Family Cardiac Disorders: Yes Hx Family Cancer: Yes Father Hx Family Cardiac Disorders: Yes Hx Family Cancer: Yes Medications and Allergies Alendronate Sodium [Fosamax] 70 mg PO TU 04/12/16 [History] Cholecalciferol (D-3) [Vitamin D] 5,000 unit PO DAILY 04/12/16 [History] Zolpidem [Ambien] 10 mg PO HS PRN 04/12/16 [History] Doxycycline Monohydrate [Mondoxyne Nl] 100 mg PO BID 07/17/18 [History] Rivaroxaban [Xarelto] 20 mg PO DAILY 07/17/18 [History] dilTIAZem HCl [Diltiazem 24Hr Cd] 120 mg PO DAILY 07/17/18 [History] Celecoxib [Celebrex] 200 mg PO DAILY 07/18/18 [History] Allergy/AdvReac Type Severity Reaction Status Date / Time Sulfa (Sulfonamide AdvReac Itching Verified 07/18/18 10:41 Antibiotics) All Systems Review: The remainder of the systems were reviewed and are negative - Constitutional Constitutional: fatigue, lethargy, weight gain - Cardiovascular Cardiovascular: rapid heart rate - Hematological/Lymphatic Hematologic/Lymphatic: easy bleeding, blood thinners Physical Examination Vital Signs, Last 4 Hours Temp Pulse Resp BP Pulse Ox 07/20/18 11:28 98.3 F 74 18 136/83 96 07/20/18 07:43 98.1 F 70 16 117/72 96 General: Conversant, No Apparent Distress, Well developed, Well nourished HEENT: Atraumatic, Normocephaly, Trachea midline Neck: No JVD Cardiac: Reg Rate and Rhythm, Normal S1 and S2, No Murmur Lungs: Normal Breath Sounds Neuro: Alert and responsive, No focal deficits noted, Cranial nerves intact, Motor nerves intact Vascular: Normal capillary refill Abdomen: Soft, Non-tender Extremities: No Clubbing, No Cyanosis, No Edema, Normal Pulses Results 07/20/18 05:58 07/20/18 05:58 Lab Results, Last 24 hours 07/20/18 07/20/18 05:58 05:58 WBC 9.6 Hgb 13.3 Hct 39.7 Plt Count 221 Sodium 136 Potassium 4.6 Chloride 103 Carbon Dioxide 24 BUN 22 Creatinine 0.88 Glucose 114 H Calcium 9.5 Consult Discharge Plan - Plan Referrals: Lamin Watson DO [Primary Care Provider] - 07/30/18 9:30 am ()
[2018-07-21] MEDS: *HR* Enoxaparin 100 MG/ML SYRINGE SQ SCH (05:10)
--- NOTE | 2018-07-21 06:56 | Anesthesia Evaluation PreOp ---
Date of Encounter: 07/21/18 Time of Encounter: 07:00 - Past History Planned Operation: Dual Chamber Pacemaker Placement Cardiac History: Arrhythmia (Paroxysmal AFib with RVR on Diltiazem given today 199) Pulmonary History: Former smoker, COPD GENETIC COORDINATOR History: Denies Any Significant HX Other Medical History: Denies Any Significant HX Anesthesia History: No Prior Anesthetic Complications : No Alcohol Use: none Drug use: none Medications and Allergies Alendronate Sodium [Fosamax] 70 mg PO TU 04/12/16 [History] Cholecalciferol (D-3) [Vitamin D] 5,000 unit PO DAILY 04/12/16 [History] Zolpidem [Ambien] 10 mg PO HS PRN 04/12/16 [History] Doxycycline Monohydrate [Mondoxyne Nl] 100 mg PO BID 07/17/18 [History] Rivaroxaban [Xarelto] 20 mg PO DAILY 07/17/18 [History] dilTIAZem HCl [Diltiazem 24Hr Cd] 120 mg PO DAILY 07/17/18 [History] Celecoxib [Celebrex] 200 mg PO DAILY 07/18/18 [History] Allergy/AdvReac Type Severity Reaction Status Date / Time Sulfa (Sulfonamide AdvReac Itching Verified 07/18/18 10:41 Antibiotics) - Meds/Allergy Pre-op Review Medications Reviewed: Yes Allergies Reviewed: Yes Beta Blockers on Current Med List: No Anesthesia Results - Labs 07/20/18 05:58 07/20/18 05:58 - Imaging EKG: report reviewed (SR Rt BBB) Additional studies: ECHO EF 60%, no pulm htn Anesthesia Exam O2 Sat Weight 88.5 kg O2 Sat by Pulse Oximetry 95 O2 Sat by Pulse Oximetry 95 O2 Sat by Pulse Oximetry 96 O2 Sat by Pulse Oximetry 96 Vital Signs Temp Pulse Resp BP Pulse Ox 97.9 F 62 16 112/54 99 07/16/18 20:01 07/16/18 20:01 07/16/18 20:01 07/16/18 20:01 07/16/18 20:01 Height: 5'4 Weight: 195 lbs NPO (# of Hours): MN Pain Scale: 0 - HEENT Pupil (Motor): Pupils equal, EOMI Oral Opening: Greater than 3 - GENETIC COORDINATOR LOC: Oriented GENETIC COORDINATOR Motor: Normal RUE, Normal LUE, Normal RLE, Normal LLE, Normal Face GENETIC COORDINATOR Sensory: Normal: RUE, LUE, RLE, LLE, Face - Cardiac Rhythm: Regular Murmur: None JVD: No Carotid Bruit: No - Pulmonary Breath Sounds: bilateral Clear Respiratory Effort: Symmetrical Anesthesia Assess/Plan ASA Score: 3 (Arrhythmia COPD) Level of consciousness: Cooperative, Oriented Anesthetic Plan: MAC Autologous Blood: No Monitoring Plan: Standard Monitors Recovery Plan: Other (Discussed MAC, possible GA, agrees to proceed)
[2018-07-21] MEDS ORDERED: Propofol 500 MG/50 ML INFUS..BTL ONE (07:22)
[2018-07-21] MEDS ORDERED: Lidocaine -MPF 2% 2 ML VIAL ONE ×2 (07:22→08:14)
[2018-07-21] MEDS ORDERED: *HR* FentaNYL (PF) 100 MCG/2 ML VIAL ONE (07:23)
[2018-07-21] MEDS ORDERED: Heparin 1,000 UNITS/500 mL 500 ML ONE (07:54)
[2018-07-21] MEDS ORDERED: Lidocaine 1% 20 ML MDV ONE (07:55)
[2018-07-21] MEDS ORDERED: *HR* PHENYLEPHRINE 1,000 MCG/10 ML SYRINGE IVP ONE (08:20)
[2018-07-21] MEDS ORDERED: ceFAZolin 2,000 MG in Water for inj. (sterile) 20 ML IVP ONE (08:26)
--- NOTE | 2018-07-21 09:07 | Operative Note ---
Date of procedure: 07/21/18 Pre-op diagnosis: sinus with pauses Post-op diagnosis: same Procedure: ddd pacemaker with fluoro Implants: pacemaker with atrial and ventricular leads Anesthesia: MAC, regional Surgeon: Talha Smith Was there an political science research assistant present: No Estimated blood loss (cc): 1 Specimen: none Condition: stable Disposition: PACU Procedure in Detail: Patient was brought to the operating room and placed on the operating room table in supine position. Perioperative antibiotics and DVT prophylaxis onboard she was prepped and draped in the usual sterile fashion. Could not access the right subclavian vein we attempted on the left with ease. 2 guidewires were placed using Seldinger technique. 50-50 mixture of lidocaine plain and half percent Marcaine plain were used to anesthetize the skin and subcutaneous tissues using #15 scalpel blade a small pacemaker pocket was created. The ventricular lead was placed in the atrial lead placed interrogated with a #in the chart for resistance pacing threshold. Wires were then connected to the device which was tacked to the pectoralis fashion with 3-0 Prolene suture and the leads tacked to the pectoralis fashion with silk suture. The incision was closed with a running layer of 0 Vicryl and 4-0 Monocryl subcuticular stitch with dressings consisting of Steri-Strips and sterile gauze. Patient was taken to the recovery room breathing spontaneously and hemodynamically stable
[2018-07-21] MEDS ORDERED: *HR* HYDROcodone/Acet 5/325 mg TABLET PO PRN (09:09)
[2018-07-21] MEDS ORDERED: Naloxone 0.4 MG/ML INJ IVP PRN (09:09)
--- NOTE | 2018-07-21 09:56 | Anesthesia Evaluation Post Op ---
Date of Encounter: 07/21/18 Time of Encounter: 09:50 - Lungs Lungs: Clear Ascult./Percussion - Airway Airway: Non-obstructed - Cardiovascular Regular Rate - Mental Status Mental Status: Alert & Oriented, Answers Appropriately - Pain Pain Scale: 0 - Nausea Vomiting Nausea Vomiting: Not Present - Hydration Hydration: NPO - Discharge PostOp Status: Transfer Patient to floor
[2018-07-21] MEDS: Doxycycline 100 MG CAPSULE PO SCH ×2 (10:09→21:10)
[2018-07-21] MEDS: Cholecalciferol (D-3) 1,000 UNIT TABLET PO SCH (10:09)
--- NOTE | 2018-07-21 10:16 | Event Note ---
Date of Encounter: 07/21/18 Time of Encounter: 09:00 - Cardiology Event Note Pt currently in surgery with Dr. Smith for PPM placement for bradycardia and pauses. Telemetry review shows patient remained in NSR. Spoke with device wire rope sales representative. Pt receiving medtronic PPM. She will need device check and CXR t omorrow prior to discharge. Currently on lovenox for AC. On xarelto at home.
--- NOTE | 2018-07-21 11:32 | Internal Med Progress Note ---
Hospitalist Progress Note - Encounter Date of Encounter: 07/21/18 Time of Encounter: 11:31 - Subjective Interval History: Patient seen and examined in the room. She has no complaint at this time. - Exam Vitals: Temp Pulse Resp BP Pulse Ox 97.9 F 77 18 100/68 95 07/21/18 09:20 07/21/18 11:05 07/21/18 11:05 07/21/18 11:05 07/21/18 11:05 Exam: PHYSICAL EXAMINATION: GENERAL APPEARANCE: The patient is alert, oriented and in no acute distress. HEENT: Head is normocephalic. The sinuses are nontender. Pupils are equal and reactive. The nares are patent. Oropharynx clear without lesions. NECK: Supple without lymphadenopathy. HEART: Regular rate and rhythm. LUNGS: No crackles or wheezes are heard. ABDOMEN: Soft, nontender, nondistended with good bowel sounds heard. Inguinal area is normal. EXTREMITIES: Without cyanosis, clubbing or edema. NEUROLOGICAL: Gross nonfocal. SKIN: Warm and dry without any rash. - Assessment and Plan (1) Sinus pause Current Visit: Yes Status: Acute Assessment and Plan: 07/18 Patient was recently diagnosis with paroxysmal atrial fibrillation, has been following up with Dr. White, currently having a remote wearable telemetry device, reported that she was having episodic A. fib with RVR, with associated facial flushing and anxious feeling. Cardiology started the patient on Rythmol, overnight, patient had several episodes of sinus pause with the longest one about 4 second. Cardizem dose was downgraded by cardiology, Rythmol was continued. Continue monitoring. 07/19 Telemetry tracing reviewed, patient still have occasional sinus pause with junctional escape. Cardizem dose has adjusted by cardiology. Ideology following, appreciate help. 07/20 Due to persistent sinus pause, cardiology elected for pacemaker implantation, planed for next Sunday. Rythmol has been DC'd, overnight, patient has no reported lightheadedness. 07/21 Ppm today. (2) PAF (paroxysmal atrial fibrillation) Current Visit: Yes Status: Acute Assessment and Plan: Currently patient on sinus rhythm, Xarelto on hold, in stated patient was placed on Lovenox for upcoming pacemaker insertion. We will resume Xarelto after the procedure. (3) Tick bite Current Visit: No Status: Chronic Assessment and Plan: Patient was prescribed doxycycline by PCP, we will continue, follow-up with PCP if further testing was indicated. (4) DVT prophylaxis Current Visit: Yes Status: Acute Assessment and Plan: Pt on Lovenox. - Time Spent with Patient Total time spent is greater than 50% in coordination of care (as documented) at patient's floor/unit and/or counseling patient: Greater than 35 minutes Plan of Care Discussed with: patient Internal Medicine: Result - Labs CBC & Chem 7: 07/20/18 05:58 07/20/18 05:58 - ABG Interpretation ABG results: PT/INR, D-dimer PT 29.5 Seconds (9.4-12.1) H 07/16/18 20:09 - Impressions Impressions Fluoroscopy 07/21/18 00:00 IMPRESSION: Intraprocedural fluoroscopic spot images as above. See separate procedure report for more information. D/ / 07/21/2018 10:56:28 Myrna Zapata MD / chris Interpreting Provider: Myrna Zapata MD Consult Discharge Plan - Plan Referrals: Lamin Watson DO [Primary Care Provider] - 07/30/18 9:30 am () (3) Tick bite Qualifiers: Encounter type: initial encounter Qualified Code(s): W57.XXXA - Bitten or stung by nonvenomous insect and other nonvenomous arthropods, initial encounter
[2018-07-21] MEDS ORDERED: *HR* Morphine 2 MG/ML SYRINGE IVP ONE (13:57)
[2018-07-21] MEDS: ceFAZolin 1,000 MG in Water for inj. (sterile) 20 ML 10 ML IVP SCH ×2 (14:06→23:52)
[2018-07-21] MEDS ORDERED: SIMETHICONE/SOD BICARB/CIT AC 1 EACH GRAN.EF.PK PO ONE (17:18)
[2018-07-21] MEDS ORDERED: Simethicone 80 MG TAB.CHEW PO PRN (17:47)
[2018-07-21] MEDS ORDERED: *HR* Enoxaparin 100 MG/ML SYRINGE SQ SCH (18:00)
[2018-07-22 03:12] LABS: Hematocrit 37.9 % (35.3-44.9); Hemoglobin 12.7 g/dL (11.5-15.4); Mean Corpuscular HGB Conc 33.5 g/dL (31.6-35.5); Mean Corpuscular Hemoglobin 30.7 pg (28.0-33.3); Mean Corpuscular Volume 91.5 fL (83.0-100.0); Mean Platelet Volume 10.4 fL (9.4-12.4); Platelet Count 203 K/mcL (140-400); Red Blood Count 4.14 M/mcL (3.82-4.97); Red Cell Distribution Width 12.6 % (11.5-14.5)
[2018-07-22 03:30] LABS: BUN/Creatinine Ratio 29 (6-26); Blood Urea Nitrogen 22 mg/dL (8-23); Calcium 9.4 mg/dL (8.6-10.3); Carbon Dioxide 27 mEq/L (23-29); Chloride 101 mEq/L (98-107); Glucose 102 mg/dL (70-105); Osmolality,Calculated 282 (280-300); Potassium 4.1 mEq/L (3.5-5.1); Sodium 134 mEq/L (136-145); eGFR For Non-African Americans > 60 (> 60)
[2018-07-22] MEDS ORDERED: Cholecalciferol (D-3) 1,000 UNIT TABLET PO SCH (09:00)
--- NOTE | 2018-07-22 09:05 | Cardiothoracic Progress Note ---
Date of Encounter: 07/22/18 Time of Encounter: 09:03 - Assessment and plan (1) Paroxysmal atrial fibrillation with rapid ventricular response Current Visit: Yes Status: Acute The assessment and plan as outlined above was discussed with the patient and/or family members who expressed understanding and agreement. All questions were answered. may discharge home. resume anticoagulation in 1 week. follow up in my office in 2 weeks for a wound check. (2) Sinus pause Current Visit: Yes Status: Acute The assessment and plan as outlined above was discussed with the patient and/or family members who expressed understanding and agreement. All questions were answered. Vital Signs, Last 4 Hours Temp Pulse Resp BP Pulse Ox 07/22/18 07:10 98.0 F 76 18 129/77 96 Oxgyen Flow Rate Oxygen Flow Rate (LPM) 2 Weight 07/20/18 07/21/18 07/22/18 23:59 23:59 23:59 Weight 88 kg 88.5 kg 89.4 kg - Physical Examination General: Conversant, No Apparent Distress HEENT: Atraumatic, Normocephaly Cardiac: Reg Rate and Rhythm, Normal S1 and S2 Incision: No signs of infection, Dry/intact dressing, Open to air, Other (asked PEARL FISHERMAN not to remove my dressings in the future) Lungs: Normal Breath Sounds Neuro: Alert and responsive, No focal deficits noted - Labs 07/22/18 02:49 07/22/18 02:49 Lab Results, Last 24 hours 07/22/18 07/22/18 02:49 02:49 WBC 10.1 Hgb 12.7 Hct 37.9 Plt Count 203 Sodium 134 L Potassium 4.1 Chloride 101 Carbon Dioxide 27 BUN 22 Creatinine 0.77 Glucose 102 Calcium 9.4 Consult Discharge Plan - Plan Additional Instructions: follow in with dr. byers in 2 weeks for wound check. Referrals: Lamin Watson DO [Primary Care Provider] - 07/30/18 9:30 am ()
[2018-07-22] MEDS: Doxycycline 100 MG CAPSULE PO SCH (09:08)
[2018-07-22] MEDS: ceFAZolin 1,000 MG in Water for inj. (sterile) 20 ML 10 ML IVP SCH (09:08)
--- NOTE | 2018-07-22 09:21 | Cardiology Progress Note ---
Date of Encounter: 07/22/18 Time of Encounter: 09:00 Assessment and Plan (1) Sinus pause Current Visit: Yes Status: Acute Per Cardiology: S/p Medtronic pacer insertion 07/21/[address] Smith. Pacer check this morning within normal limits. Chest x-ray pending. Cardiology signing off, re-consult as needed, follow up for wound check in 7-10 days and pacer check in 4-6 weeks in pacer clinic. F/u arranged. Post procedure and wound education provided. All questions answered. Patient verbalized understanding and agreed with plan. (2) PAF (paroxysmal atrial fibrillation) Current Visit: Yes Status: Acute Per Cardiology: Nuclear stress test 04/2018 negative for ischemia or infarct. TTE 07/17/18: LVEF 65%. Normal LV chamber size, wall thickness and function. Normal LVDD. Normal RV structure and function. Mild TR. No phtn. Symptomatic PAF. Saw Dr. Matt Mckeon outpt 07/12/18 with plans for direct admission for Rythmol 150mg [id number]-- s/p 10 doses (had RBBB). Current ECG shows: Sinus rhythm at 87 with QRS 143 ms. Cardizem CD 120mg daily was decreased 07/18 to short acting 15mg TID d/t pauses. Now has pacer, will resume Cardizem CD 120mg PO daily. SBP 120s-130s. Anticoagulated on Xarelto, recs to resume in one week status post pacer. Discussion w patient/family: The assessment and plan as outlined above was discussed with the patient and/or family members who expressed understanding and agreement. All questions were answered. Thank you for involving us in the care of your patient. Please call with any questions. Subjective Principal diagnosis: PAF Interval history: Denies any concerns over night. Reports some left anterior chest wall incisional soreness. Objective Vital Signs, Last 4 Hours Temp Pulse Resp BP Pulse Ox 07/22/18 07:10 98.0 F 76 18 129/77 96 General: Conversant, No Apparent Distress HEENT: Atraumatic, Normocephaly, Mucus Membranes Moist Neck: No JVD, Normal carotid pulses Cardiac: Reg Rate and Rhythm, Normal S1 and S2, No Murmur Lungs: Normal Breath Sounds, No Wheeze, Rales, Rhonchi Neuro: Alert and responsive, No focal deficits noted Abdomen: Soft, Non-Tender Skin: No rashes noted on visualized skin, Other (Left anterior chest wall incision site well approximated, no bleeding, no drainage, no ecchymosis, Steri- Strips dry and intact) Musculoskeletal: No Chest Wall Tenderness Extremities: No Clubbing, No Cyanosis, No Edema, Normal Pulses Results 07/22/18 02:49 07/22/18 02:49 Lab Results Laboratory Tests 07/22/18 07/22/18 02:49 02:49 WBC 10.1 Hgb 12.7 Hct 37.9 Creatinine 0.77 Est GFR (Non-Af Amer) > 60 Impressions Fluoroscopy 07/21/18 00:00 IMPRESSION: Intraprocedural fluoroscopic spot images as above. See separate procedure report for more information. D/ / 07/21/2018 10:56:28 Myrna Zapata MD / bcarter Interpreting Provider: Myrna Zapata MD Chest X-Ray 07/21/18 13:56 IMPRESSION: No acute abnormality detected. D/ / Panchito Rodríguez MD / Panchito Rodríguez MD Interpreting Provider: Panchito Rodríguez MD Active Medications Hydrocodone Bitart/Acetaminophen ([place] 5-325 Mg) 1 tab PO Q4HR PRN PRN Reason: Pain Stop: 01/20/19 09:10 Last Admin: 07/21/18 11:31 Dose: 1 tab Documented by: Diltiazem HCl (Cardizem Cd) 120 mg PO DAILY [facility] Stop: 01/21/19 09:31 Doxycycline Hyclate (Doxycycline) 100 mg PO BID TRACEY Stop: 01/17/19 21:01 Last Admin: 07/22/18 09:08 Dose: 100 mg Documented by: Cefazolin Sodium (Ancef Syringe 2,000 Mg/20 Ml) 2,000 mg in 20 mls @ 200 mls/hr IVPB PREOP ONE Stop: 07/22/18 11:05 Naloxone HCl (Narcan) 0.4 mg IVP Q2MPRN PRN PRN Reason: SEE COMMENTS Stop: 01/16/19 05:11 Propafenone HCl (Rhythmol) 150 mg PO Q8H TRACEY Stop: 01/17/19 10:02 Last Admin: 07/22/18 09:07 Dose: 150 mg Documented by: Simethicone (Gas-X) 80 mg PO TID PRN PRN Reason: Dyspepsia Stop: 01/20/19 17:48 Last Admin: 07/21/18 17:56 Dose: 80 mg Documented by: Vitamin D (Vitamin D) 1,000 unit PO DAILY TRACEY Stop: 01/16/19 09:01 Last Admin: 07/22/18 09:07 Dose: 1,000 unit Documented by: Zolpidem Tartrate (Ambien) 10 mg PO HS PRN; Protocol PRN Reason: Sleep Stop: 01/16/19 08:47 - Imaging and Cardiology Chest Xray: pending, report reviewed Consult Discharge Plan - Plan Additional Instructions: follow in with dr. smith in 2 weeks for wound check. Referrals: Lamin Watson DO [Primary Care Provider] - 07/30/18 9:30 am ()
[2018-07-22] MEDS ORDERED: Diltiazem CD (24hr) 120 MG CAPSULE PO SCH (09:30)
[2018-07-22] MEDS ORDERED: CeFAZolin Syr 2,000MG/20 ML 2,000 MG/20 ML SYRINGE IVPB ONE ×2 (11:00)
--- NOTE | 2018-07-22 13:19 | Discharge Summary ---
- NOTES TO OUTPATIENT PROVIDER Notes to Outpatient Provider: F/u with PCP within a weeek. F/u with Cardiothoracic surgery within 10 days. F/u with cardiology within 2 weeks. f/u with pacer clinic within 4-6 weeks. Orders not resulted at time of discharge: Pending orders 07/21/18 XR chest 1V [XR] Routine 07/22/18 09:14 XR chest 1V portable [XR] Routine ECG 12 lead ECG [ECG] Stat 07/22/18 11:00 CL Insert Permanent Pacemaker [CL] Routine Date of Encounter: 07/22/18 Time of Encounter: 13:18 - Discharge Diagnosis (1) Sinus pause Priority: Primary Status: Acute (2) PAF (paroxysmal atrial fibrillation) Priority: Primary Status: Acute (3) Tick bite Priority: Secondary Status: Chronic Qualifiers: Encounter type: initial encounter Qualified Code(s): W57.XXXA - Bitten or stung by nonvenomous insect and other nonvenomous arthropods, initial encounter (4) DVT prophylaxis Priority: Primary Status: Acute Hospital course: Ms. Yates is a 72 year old female. Patient presented to the emergency room with history of paroxysmal atrial fibrillation. She has been wearing a bus driver/monitor which had showed atrial fibrillation with RVR during the last few days. She had felt weak during an episode prior to her presentation to the ER, as well as dizzy. She was also diaphoretic, and as the bus driver/monitor noted atrial fibrillation, they notified her excellence manager who advised her to come to the emergency room for further evaluation. Her excellence manager, Dr. White had plan to have her admitted to the hospital in order to initiate antiarrhythmic medication. She had already been put on anti-thrombotic medication, Xarelto. She was placed on Rhythmol by cardiology and EKG showed sinus rhythm. While in the hospital, tele showed multiple sinus paused with the longest about 4 seconds, pt reported associated facial flushing and palpitation. Cardizem dose has been decreased by cardiology, however, pt continue to have sinus pauses. She subsequently had a pace maker placed by cardiothoracic surgery. After the procedure, no more sinus pauses were detected. On the discarge day, her vital signs were stable, no sinus paused on tele, labs were normal. CXR has no acute abnormalities. CT surgery recommended to hold Xarelto for one week. Cardiology recommended continue Rhythmol and cardizem with adjusted dose. She will f/u with PCP, CT surgery, cardiology, and pacer clinic as scheduled. Discharge discussed with: patient Time spent discussing smoking cessation with patient: more than 10 minutes - Time Spent with Patient Total time spent providing and/or coordinating discharge services: Time spent: Greater than 30 minutes - Discharge Medications Prescriptions: New Diltiazem CD (24hr) [Cardizem CD] 120 mg PO DAILY #30 cap.er.24h Propafenone [Rhythmol] 150 mg PO Q8H #90 tablet Continued Zolpidem [Ambien] 10 mg PO HS PRN PRN Reason: Sleep Cholecalciferol (D-3) [Vitamin D] 5,000 unit PO DAILY Alendronate Sodium [Fosamax] 70 mg PO TU Doxycycline Monohydrate [Mondoxyne Nl] 100 mg PO BID Celecoxib [Celebrex] 200 mg PO DAILY Rivaroxaban [Xarelto] 20 mg PO DAILY #0 Discontinued dilTIAZem HCl [Diltiazem 24Hr Cd] 120 mg PO DAILY Home Medications: Alendronate Sodium [Fosamax] 70 mg PO TU 04/12/16 [History] Cholecalciferol (D-3) [Vitamin D] 5,000 unit PO DAILY 04/12/16 [History] Zolpidem [Ambien] 10 mg PO HS PRN 04/12/16 [History] Doxycycline Monohydrate [Mondoxyne Nl] 100 mg PO BID 07/17/18 [History] Celecoxib [Celebrex] 200 mg PO DAILY 07/18/18 [History] Diltiazem CD (24hr) [Cardizem CD] 120 mg PO DAILY #30 cap.er.24h 07/22/18 [Rx] Propafenone [Rhythmol] 150 mg PO Q8H #90 tablet 07/22/18 [Rx] Rivaroxaban [Xarelto] 20 mg PO DAILY #0 07/22/18 [Rx] Allergies/Adverse Reactions: Allergy/AdvReac Type Severity Reaction Status Date / Time Sulfa (Sulfonamide AdvReac Itching Verified 07/18/18 10:41 Antibiotics) Date of admission: 07/19/18 12:46 Primary care physician: Nilesh Watson DO Consults: 07/17/18 05:15 Consult to Cardiology [CONS] Routine Comment: Consulting Provider: Cardiology Nancy Reason for Consult: Proxysmal atrial fibrillation Call Completed: No Anticipated date of discharge: 07/22/18 - Constitutional Vitals: Temp Pulse Resp BP Pulse Ox 97.9 F 83 17 110/72 97 07/22/18 11:13 07/22/18 11:13 07/22/18 11:13 07/22/18 11:13 07/22/18 11:13 General appearance: Present: cooperative, A&O X 3, pleasant, no acute distress, answers questions appropriately Exam: PHYSICAL EXAMINATION: GENERAL APPEARANCE: The patient is alert, oriented and in no acute distress. HEENT: Head is normocephalic. The sinuses are nontender. Pupils are equal and reactive. The nares are patent. Oropharynx clear without lesions. NECK: Supple without lymphadenopathy. HEART: Regular rate and rhythm. LUNGS: No crackles or wheezes are heard. ABDOMEN: Soft, nontender, nondistended with good bowel sounds heard. Inguinal area is normal. EXTREMITIES: Without cyanosis, clubbing or edema. NEUROLOGICAL: Gross nonfocal. SKIN: Warm and dry without any rash. - Patient Status Disposition: Home, Self-Care Condition: Good Functional capacity at discharge: independent ambulation Overall status at discharge: patient is progressing back to baseline - Discharge Instructions Follow Up With: Lamin Watson DO [Primary Care Provider] - 07/30/18 9:30 am () Additional Instructions: follow in with dr. byers in 2 weeks for wound check. - Diet and Activity Activity: increase activity as tolerated Diet: low fat, low cholesterol, low salt diet
--- NOTE | 2018-07-22 13:44 | Electrocardiograph Report ---
[place] [address] Test Date: 2018-07-21 Pat Name: Missy Yates Department: 113 Room: 3B24 Gender: F Information Management Officer: [id number] : 1945 Requested By: Sylvie Blue Order Number: [id number] Reading MD: Azar Mejia Measurements Intervals [place] Rate: 79 P: 81 PA: 182 QRS: -7 QRSD: 134 T: 65 QT: 379 QTc: 413 Interpretive Statements ELECTRONIC VENTRICULAR PACEMAKER ABNORMAL RHYTHM ECG Electronically Signed On 07-22-2018 13:42:57 EDT by Azar Mejia
[2018-07-22 16:31] VITALS: BP 116/68
[2018-07-22] MEDS ORDERED: *HR* Rivaroxaban 10 MG TABLET PO SCH (17:00)
--- NOTE | 2018-07-23 14:09 | Electrocardiograph Report ---
[address] [place], [place] [address] Test Date: 2018-07-22 Pat Name: Missy Yates Department: 113 Room: 3B24 Gender: F Photostatic Copy Maker: : 1945 Requested By: Venkata Novak Order Number: [id number] Reading MD: Dread Franklin Measurements Intervals [place] Rate: 87 P: 76 HI: 164 QRS: -7 QRSD: 143 T: 52 QT: 375 QTc: 420 Interpretive Statements ELECTRONIC VENTRICULAR PACEMAKER Electronically Signed On 07-23-2018 14:08:31 EDT by Dread Franklin
== END 2018-07-22 17:04 | disposition home or self-care (01) | DRG 244 ==
LOC: 3BNU 19:38 → EMEROOARM 19:38 → 3BNU 07-17 01:01
PROVIDERS: ADMIT Pediatrics; ATTEND Pediatrics
PROC: [UNRECOGNIZED PROCEDURE] (2018-07-21 08:00)